=== PATIENT | male | born 1950 | race Caucasian/White ===

== ENCOUNTER 2016-03-19 16:54 | Inpatient (IN) | payer OTHER ==
[~2016-03-19] VITALS: Ht 177.8 cm; Wt 108.0 kg
[2016-03-19] MEDS ORDERED: JANUVIA100 MG PO (19:52)
[2016-03-19] MEDS ORDERED: SERTRALINE HCL50 MG PO (19:53)
[2016-03-19] MEDS ORDERED: LISINOPRIL-HCT1 EAC3 PO (19:53)
[2016-03-19] MEDS ORDERED: LISINOPRIL20 MG PO (19:54)
[2016-03-19] MEDS ORDERED: METFORMIN HCL500 M1 PO (19:54)
[2016-03-19] MEDS ORDERED: CALCIUM 600 +1 EAC3 PO (19:55)
[2016-03-19] MEDS ORDERED: CYANOCOBALAM1000 MCG PO (19:55)
[2016-03-19] MEDS ORDERED: CENTRUM MEN'S1 EACH PO (19:55)
[2016-03-19] MEDS ORDERED: PRILOSEC OTC20 MG PO (19:55)
[2016-03-19] MEDS ORDERED: LO-DOSE ASPIRIN81 M1 PO (19:56)
[2016-03-19 21:01] LABS: EOSINOPHIL (%) 0.2 % (0-5); HEMATOCRIT 30.4 % (38.0-50.0); IMMATURE GRANULOCYTE (%) 0.2 % (0.0-0.7); IMMATURE GRANULOCYTE COUNT 0.2 K/uL; LYMPHOCYTE COUNT 0.9 K/uL (1.0-2.8); MCH 32.7 PG (29.0-34.0); MCHC 33.9 G/DL (30.0-36.0); MCV 96.5 FL (86-99); MEAN PLAT.VOLUME 9.4 uM^3 (9.0-12.4); MONOCYTE (%) 7.7 % (3-12); MONOCYTE COUNT 0.7 K/uL (0-0.8); NEUTROPHIL (%) 82.5 % (45-76); NEUTROPHIL COUNT 7.8 K/uL (1.8-6.4); PLATELET COUNT 256 K/uL (156-360); RBC DIS.WIDTH-CV 11.6 % (11.8-14.6); RBC DIS.WIDTH-SD 39.7 % (39-53); RED BLOOD COUNT 3.15 M/uL (4.00-5.50); WHITE BLOOD COUNT 9.4 K/uL (4.1-10.2)
[2016-03-19 21:03] LABS: CHLORIDE 105 mEq/L (99-109); POTASSIUM 4.4 mEq/L (3.7-5.4); SODIUM 135 mEq/L (136-147)
[2016-03-19 21:06] LABS: GLUCOSE 133 mg/dL (70-99); INTER. NORMALIZED RATIO 1.1; PROTHROMBIN TIME 11.2 (9.2-11.2)
[2016-03-19 21:07] LABS: ANION GAP 15 MEQ/L (2-14)
[2016-03-19 21:08] LABS: TOTAL BILIRUBIN 0.6 mg/dL (0.0-1.0)
[2016-03-19 21:09] LABS: ALKALINE PHOSPHATASE 74 IU/L (3-129); GFR ESTIMATE (CALCULATED) > 59 mL/min/; SERUM ETHYL ALCOHOL 130 mg/dL
[2016-03-19 21:10] LABS: UREA NITROGEN (BUN) 20 mg/dL (9-23)
[2016-03-19 21:16] LABS: TROP-I INTERPRETATION NEGATIVE; TROPONIN-I < 0.01 ng/mL (0.0-0.30)
[2016-03-19 22:57] VITALS: BP 120/59
[2016-03-19 23:20] VITALS: BP 120/59
[2016-03-19 23:44] LABS: POINT-OF-CARE METER ID UU14149397
[2016-03-20 07:15] VITALS: BP 139/69
[2016-03-20 08:05] LABS: EOSINOPHIL (%) 4.3 % (0-5); EOSINOPHIL COUNT 0.2 K/uL (0-0.3); HEMATOCRIT 30.8 % (38.0-50.0); IMMATURE GRANULOCYTE (%) 0.2 % (0.0-0.7); LYMPHOCYTE COUNT 1.5 K/uL (1.0-2.8); MCH 32.9 PG (29.0-34.0); MCHC 33.8 G/DL (30.0-36.0); MCV 97.5 FL (86-99); MEAN PLAT.VOLUME 9.9 uM^3 (9.0-12.4); MONOCYTE COUNT 0.9 K/uL (0-0.8); NEUTROPHIL (%) 50.7 % (45-76); NEUTROPHIL COUNT 2.7 K/uL (1.8-6.4); PLATELET COUNT 243 K/uL (156-360); RED BLOOD COUNT 3.16 M/uL (4.00-5.50)
[2016-03-20 08:06] LABS: WHITE BLOOD COUNT 5.4 K/uL (4.1-10.2)
[2016-03-20 08:55] VITALS: BP 139/69
== END 2016-03-20 09:52 | disposition short-term general hospital (02) | DRG 562 ==
LOC: EME 16:54 → EDOF 20:00 → 3EAST 20:00
PROVIDERS: Emergency Medicine; Orthopaedic Surgery
DX: S82.841A Displaced bimalleolar fracture of right lower leg, initial encounter for closed fracture (principal); S72.352A Displaced comminuted fracture of shaft of left femur, initial encounter for closed fracture; S82.431A Displaced oblique fracture of shaft of right fibula, initial encounter for closed fracture; W10.9XXA Fall (on) (from) unspecified stairs and steps, initial encounter; Y92.009 Unspecified place in unspecified non-institutional (private) residence as the place of occurrence of the external cause; I70.201 Unspecified atherosclerosis of native arteries of extremities, right leg; I95.9 Hypotension, unspecified; F10.10 Alcohol abuse, uncomplicated; I10 Essential (primary) hypertension; E11.9 Type 2 diabetes mellitus without complications; F41.9 Anxiety disorder, unspecified; Q82.2 Congenital cutaneous mastocytosis; Z89.021 Acquired absence of right finger(s); Z79.82 Long term (current) use of aspirin; Z79.84 Long term (current) use of oral hypoglycemic drugs; Z98.84 Bariatric surgery status; Z88.1 Allergy status to other antibiotic agents; Z88.6 Allergy status to analgesic agent
CPT/HCPCS: 71010; 73502; 73552; 73560; 73600; 73706; 80053; 82948; 84484; 85025; 85610; 86850; 86900; 86901; 86920; 93005; 99281; 99285; G0480; J1170; J2270; J2405; J3370; J3411; J3475; J7030